=== PATIENT | female | born 1995 | race Caucasian/White ===

== ENCOUNTER 2019-04-12 06:00 | Inpatient (IN) | payer OTHER ==
[2019-04-12] MEDS ORDERED: METHYLERGONOVINE 0.2 MG/ML 1 ML AMP IM PRN (06:40)
[2019-04-12] MEDS ORDERED: TERBUTALINE 1 MG/ML VIAL SQ PRN (06:40)
[2019-04-12] MEDS ORDERED: CARBOPROST TROMETHAMINE 250 MCG/ML 1 ML AMP IM PRN (06:40)
[2019-04-12] MEDS ORDERED: AMPICILLIN 2,000 MG in SODIUM CHLORIDE 0.9% 100 ML IVPB STA (06:40)
[2019-04-12] MEDS ORDERED: LIDOCAINE 0.5% (PF) 5 MG/ML (50 ML SDV) SQ PRN (06:40)
[2019-04-12] MEDS: LACTATED RINGERS 1,000 ML IV SCH ×2 (06:46→11:36)
[2019-04-12] MEDS: OXYTOCIN 30 UNITS/500 ML NS 30 UNIT in SALINE 1 500ML.BAG IV SCH (07:09)
[2019-04-12 07:10] LABS: Basophils % (A) 0 %; Eosinophils # (A) 0.1 k/uL (0-0.7); Eosinophils % (A) 1 %; HCT 36.2 % (34.0-46.0); Lymphocytes # (A) 2.7 k/uL (1.0-4.8); Lymphocytes % (A) 23 %; MCH 26.7 pg (25.0-35.0); MCHC 33.3 g/dL (31.0-37.0); MCV 80.2 fL (80.0-100.0); Mean Platelet Volume 7.9; Monocytes # (A) 0.5 k/uL (0-1.0); Monocytes % (A) 4 %; Neutrophils # (A) 8.6 k/uL (1.3-7.7); Neutrophils % (A) 71 %; Platelet Count 305 k/uL (150-450); RBC 4.51 m/uL (3.80-5.40); RDW 13.9 % (11.5-15.5); WBC 12.1 k/uL (3.8-10.6)
--- NOTE | 2019-04-12 08:12 | P.HPOB ---
History of Present Illness H&P Date: 04/12/19 Chief Complaint: Intrauterine at term: Induction of labor Patient is a 24-year-old at 39 weeks gestation who arrives for induction of labor. Pertinent labs include O- blood type, Rh antibody was positive due to prior [place] gamma. Rubella is non-immune, hepatitis B surface antigen was negative group B strep was positive HIV was negative. Plan GBS prophylaxis. She was transferred care to [place] at 24 weeks gestation. Since seeing her she is done well. We had no problems or concerns this morning her blood pressures mildly elevated but she is a little anxious from being induced. All questions are answered for her at this time. She is aware that induction of labor automatically increases risk for need for section. She's currently dilated to centimeters 90% effaced and -2 station. Cervix is somewhat posterior to the left. heart tones revealed category 1 tracing. She plans to use epidural for analgesia. Past Medical History Past Medical History: No Reported History History of Any Multi-Drug Resistant Organisms: None Reported Past Surgical History: No Surgical Hx Reported Past Anesthesia/Blood Transfusion Reactions: No Reported Reaction Past Psychological History: No Psychological Hx Reported Smoking Status: Former smoker Past Alcohol Use History: None Reported Past Drug Use History: None Reported - Past Family History Mother Family Medical History: No Reported History Medications and Allergies Home Medications Medication Instructions Recorded Confirmed Type Pnv No.95/Ferrous Fum/Folic AC 1 tab PO ONCE 04/12/19 04/12/19 History [ Multivitamin Tablet] Allergies Allergy/AdvReac Type Severity Reaction Status Date / Time No Known Allergies Allergy Verified 04/12/19 06:39 Exam Osteopathic Statement: *. No significant issues noted on an osteopathic structural exam other than those noted in the History and Physical/Consult. Vital Signs Temp Pulse Resp BP 04/12/19 06:35 97.5 F L 98 16 151/84 Intake and Output 04/11/19 04/12/19 04/12/19 22:59 06:59 14:59 Other: Weight 123.831 kg - OBG Physical Exam Breast: both: normal (no masses) Abdomen: bowel sounds normal, no diffuse tenderness, no bruit present, no guarding noted, no hepatomegaly, no splenomegaly, no mass Vulva: both: normal Vagina: normal moisture, no discharge Cervix: no lesion, no discharge Uterus: normal size, normal contour Adnexa: both: normal Anus/Rectum: normal perianal skin, no rectal mass, no hemorrhoids, heme negative Results Result Diagrams: 04/12/19 06:48 Abnormal Lab Results - Last 24 Hours (Table) 04/12/19 Range/Units 06:48 WBC 12.1 H (3.8-10.6) k/uL Neutrophils # 8.6 H (1.3-7.7) k/uL
[2019-04-12] MEDS: AMPICILLIN 1,000 MG in SODIUM CHLORIDE 0.9% 50 ML IVPB SCH ×2 (10:53→14:58)
[2019-04-12] MEDS ORDERED: SODIUM CHLORIDE 0.9% 100 ML BAG ONE (11:23)
[2019-04-12] MEDS ORDERED: fentaNYL (PF) 50 MCG/ML 5 ML AMP ONE (11:23)
[2019-04-12] MEDS ORDERED: ROPIVACAINE 5MG/ML 20ML VIAL ONE (11:23)
[2019-04-12] MEDS: OXYTOCIN 10 UNIT/ML 1 ML VIAL IM PRN ×2 (16:58→17:00)
--- NOTE | 2019-04-12 17:17 | P.PROBDLV ---
Vaginal Delivery Note - . Vaginal Delivery Note: Patient progressed complete and pushing with spontaneous vaginal delivery of a viable female over a intact perineum. Following delivery of the head from left occiput anterior position anterior posterior shoulders were easily delivered with gentle downward and upward traction followed by the remainder of the baby. Mouth nares were then bulb suctioned and baby was placed mother abdomen where the umbilical cord was allowed to pulsate for 30 seconds prior to clamping and cutting. Once this was accomplished nursery personnel was present and assumed care. Placenta was then delivered intact. IV had fallen out therefore she received doses of IM Pitocin, but when the bleeding persisted IV was restarted and IV Pitocin has been initiated. scores were 8 and 9 at one and 5 minutes [place] and the weight was 7 lbs. 13 oz. Small left vaginal wall laceration was repaired in interrupted fashion with 3-0 Vicryl following 1% Xylocaine for analgesia. both mother and baby are now stable following delivery.
[2019-04-12] MEDS ORDERED: diphenhydrAMINE 25 MG CAP PO PRN (17:25)
[2019-04-12] MEDS ORDERED: diphenhydrAMINE 50 MG/ML 1 ML VIAL IVP PRN ×2 (17:25)
[2019-04-12] MEDS ORDERED: SIMETHICONE 80 MG CHEWABLE PO PRN (17:25)
[2019-04-12] MEDS ORDERED: ACETAMINOPHEN TAB 325 MG TAB PO PRN (17:25)
[2019-04-12] MEDS ORDERED: diphenhydrAMINE 50 MG CAP PO PRN (17:25)
[2019-04-12] MEDS ORDERED: BENZOCAINE/MENTHOL SPRAY 1 GM/SPRAY AEROSOL TOPICAL PRN (17:25)
[2019-04-12] MEDS ORDERED: ZOLPIDEM 5 MG TAB PO PRN (17:25)
[2019-04-12] MEDS ORDERED: HYDROcodone/APAP 5-325MG 1 EACH TAB PO PRN (17:25)
[2019-04-12] MEDS ORDERED: WITCH HAZEL 1 EACH MED..PAD TOPICAL PRN (17:25)
[2019-04-12] MEDS ORDERED: HYDROCORTISONE 2.5% RECTAL CREAM 30 GM TUBE RECTAL PRN (17:25)
[2019-04-12] MEDS ORDERED: LANOLIN CREAM 5 GM TUBE TOPICAL PRN (17:25)
[2019-04-12] MEDS ORDERED: OXYTOCIN 20 UNITS/1000 ML NS 1,000 ML IV SCH (17:30)
[2019-04-12] MEDS: IBUPROFEN 600 MG TAB PO PRN (17:40)
[2019-04-12] MEDS: SENNOSIDES-DOCUSATE SODIUM 1 EACH TAB PO SCH (23:06)
[2019-04-13] MEDS ORDERED: Rhogam IMMUNE GLOBULIN 1,500 UNIT/1 ML IM ONE (01:34)
[2019-04-13] MEDS: IBUPROFEN 600 MG TAB PO PRN ×2 (05:33→15:29)
[2019-04-13 09:34] LABS: Basophils % (A) 0 %; Eosinophils # (A) 0.1 k/uL (0-0.7); Eosinophils % (A) 0 %; Lymphocytes # (A) 2.7 k/uL (1.0-4.8); Lymphocytes % (A) 18 %; MCH 27.1 pg (25.0-35.0); MCHC 33.3 g/dL (31.0-37.0); MCV 81.3 fL (80.0-100.0); Mean Platelet Volume 8.4; Monocytes # (A) 0.7 k/uL (0-1.0); Monocytes % (A) 4 %; Neutrophils # (A) 11.6 k/uL (1.3-7.7); Neutrophils % (A) 76 %; Platelet Count 279 k/uL (150-450); RDW 14.2 % (11.5-15.5); WBC 15.2 k/uL (3.8-10.6)
[2019-04-13 09:55] LABS: HGB 8.7 gm/dL (11.4-16.0)
--- NOTE | 2019-04-13 10:39 | P.PNOBGVD ---
Subjective - Subjective Principal diagnosis: day 1 Interval history: Overall patient is doing very well. She is ambulating, voiding and tolerating her diet. She voices no complaints. Vital signs are stable and afebrile. Heart regular, lungs clear, extremities without pain. We'll plan discharged home tomorrow. Discharge instructions were reviewed and all questions have been answered. She will be stable for discharge tomorrow and we'll continue take iron supplementation and Motrin for pain. A breast pump prescription was also provided. Hemoglobin is noted to be 8.7 but she is asymptomatic. No lightheadedness dizziness or other issues at this time. Lochia is now reported to be light. Patient reports: Reports appetite normal, Reports voiding normally, Reports pain well controlled, Reports ambulating normally : doing well Objective - Latest Vital Signs Latest vital signs: Vital Signs Temp Pulse Resp BP Pulse Ox 04/13/19 08:00 98.6 F 99 18 132/75 04/13/19 04:00 98.2 F 90 16 107/79 04/13/19 00:00 98.1 F 108 H 16 130/78 99 04/12/19 19:21 98.5 F 107 H 16 126/63 04/12/19 19:00 98.0 F 118 H 16 110/60 04/12/19 18:30 110 H 16 117/61 04/12/19 18:00 121 H 16 125/56 04/12/19 17:44 125 H 16 128/61 04/12/19 17:30 133 H 16 138/60 04/12/19 17:15 96.9 F L 133 H 16 137/61 Intake and Output 04/12/19 04/13/19 04/13/19 22:59 06:59 14:59 Output Total 600 Balance -600 Output: Estimated Blood Loss 600 Other: # Voids 1 2 - Labs Labs: Abnormal Lab Results - Last 24 Hours (Table) 04/13/19 Range/Units 07:51 WBC 15.2 H (3.8-10.6) k/uL RBC 3.20 L (3.80-5.40) m/uL Hgb 8.7 L D (11.4-16.0) gm/dL Hct 26.0 L (34.0-46.0) % Neutrophils # 11.6 H (1.3-7.7) k/uL
[2019-04-13] MEDS: SENNOSIDES-DOCUSATE SODIUM 1 EACH TAB PO SCH ×2 (17:50→20:25)
[2019-04-13] MEDS: LACTATED RINGERS 1,000 ML IV SCH ×3 (20:25→23:48)
[2019-04-13] MEDS: OXYTOCIN 30 UNITS/500 ML NS 30 UNIT in SALINE 1 500ML.BAG IV SCH (20:26)
[2019-04-14 04:22] VITALS: BP 120/70
[2019-04-14] MEDS: SENNOSIDES-DOCUSATE SODIUM 1 EACH TAB PO SCH (08:35)
[2019-04-14 09:50] VITALS: PULSE 81; RESP 20; TEMP 97
--- NOTE | 2019-04-14 11:24 | P.DS ---
Providers Date of admission: 04/12/19 06:20 Expected date of discharge: 04/14/19 Attending physician: Júnior Angela Primary care physician: Stated None Hospital Course: This is a 24-year-old female 1 para 0 at 39 and one sevenths weeks who presented for induction of labor. She delivered vaginally a viable female infant on 04/12/2019 with scores of 8 at 1 minute and 9 at 5 minutes and infant weight of 7 lbs. 13 oz. She did have some hemorrhage but has been doing well on day #1 and 2. Vital signs are stable. Abdomen is soft with fundus firm and nontender. Extremities show negative Homans. Impr ession is status post vaginal delivery day #2. Plan is to discharge home today. Routine instructions are given. She is advised follow- up Dr. Angela in the office in 6 weeks. She is advised to call the office if she has any further questions or concerns prior to her appointment time. Procedures: Oxytocin induction of labor Spontaneous vaginal delivery of a viable female on 04/12/2019 Patient Condition at Discharge: Stable Plan - Discharge Summary New Discharge Prescriptions: New Ibuprofen [Motrin] 600 mg PO Q6HR PRN #30 tab PRN Reason: Pain No Action Pnv No.95/Ferrous Fum/Folic AC [ Multivitamin Tablet] 1 tab PO ONCE Discharge Medication List Pnv No.95/Ferrous Fum/Folic AC [ Multivitamin Tablet] 1 tab PO ONCE 04/12/19 [History] Ibuprofen [Motrin] 600 mg PO Q6HR PRN #30 tab 04/13/19 [Rx] Follow up Appointment(s)/Referral(s): Júnior Angela DO [Doctor of Osteopathic Medicine] - 1 Week Activity/Diet/Wound Care/Special Instructions: Night lifting, and stairs and driving, and pelvic rest. If any high temperatures, heavy bleeding, or severe pain call my office Discharge Disposition: HOME SELF-CARE
[2019-04-14] MEDS: IBUPROFEN 600 MG TAB PO PRN (11:59)
== END 2019-04-14 14:00 | disposition home or self-care (01) | DRG 807 ==
LOC: 4FBP 06:20
PROVIDERS: ADMIT Obstetrics & Gynecology; ATTEND Obstetrics & Gynecology
PROC: 10907ZC Drainage of Amniotic Fluid, Therapeutic from Products of Conception, Via Natural or Artificial Opening (ICD-10-PCS; principal; 2019-04-12)
PROC: 10E0XZZ Delivery of Products of Conception, External Approach (ICD-10-PCS; principal; 2019-04-12)
PROC: 3E033VJ Introduction of Other Hormone into Peripheral Vein, Percutaneous Approach (ICD-10-PCS; principal; 2019-04-12)
PROC: 0KQM0ZZ Repair Perineum Muscle, Open Approach (ICD-10-PCS; principal; 2019-04-12)
PROC: 3E0R3BZ Introduction of Anesthetic Agent into Spinal Canal, Percutaneous Approach (ICD-10-PCS; principal; 2019-04-12)
PROC: 00HU33Z Insertion of Infusion Device into Spinal Canal, Percutaneous Approach (ICD-10-PCS; principal; 2019-04-12)
PROC: 3E0234Z Introduction of Serum, Toxoid and Vaccine into Muscle, Percutaneous Approach (ICD-10-PCS; 2019-04-13)
DX: O99.824 Streptococcus B carrier state complicating childbirth (principal); Z37.0 Single live birth; O26.893 Other specified pregnancy related conditions, third trimester; O71.4 Obstetric high vaginal laceration alone; O72.1 Other immediate postpartum hemorrhage; Z67.41 Type O blood, Rh negative; Z3A.39 39 weeks gestation of pregnancy; Z79.899 Other long term (current) drug therapy; Z87.891 Personal history of nicotine dependence
CPT/HCPCS: 85025; 85461; 86850; 86870; 86880; 86900; 86901